=== PATIENT | male | born 1985 ===

== ENCOUNTER 2016-07-17 16:24 | Emergency (ER) | payer OTHER ==
[~2016-07-17] VITALS: Ht 182.9 cm; Wt 90.7 kg
[2016-07-17 16:48] LABS: ABSOLUTE BASOPHIL COUNT 0 /CUMM (0.0-0.2); ABSOLUTE EOSINOPHIL COUNT 0 /CUMM (0.0-0.7); ABSOLUTE GRANULOCYTE CT 6.4 /CUMM (1.4-6.5); ABSOLUTE LYMPH COUNT 2.3 /CUMM (1.2-3.4); ABSOLUTE MONOCYTE COUNT 0.7 /CUMM (0.10-0.60); BASOPHIL % 0.3 % (0.0-2.0); EOSINOPHIL % 0.1 % (0-5); GRANULOCYTE % 67.5 % (42.2-75.2); MEAN CORPUSCULAR HGB 30.8 PG (27.0-31.0); MEAN CORPUSCULAR VOLUME 87.9 FL (80.0-94.0); MEAN PLATELET VOLUME 7.4 FL (7.4-10.4); PLATELET COUNT 320 /CUMM (130-400); RBC DISTRIBUTION WIDTH 12.4 % (11.5-14.5); RED BLOOD CELL CT 5.13 /CUMM (4.70-6.10); WHITE BLOOD CELL COUNT 9.4 /CUMM (4.8-10.8)
--- NOTE | 2016-07-17 17:53 | ED PSYCHIATRIC COMPLAINT ---
History of Present Illness General Chief Complaint: ETOH/Drug Related Complaint Stated Complaint: PT NEEDS DETOX FROM ALOCHOL Source: patient Exam Limitations: no limitations Vital Signs & Intake/Output Vital Signs & Intake/Output Vital Signs Date Time Temp Pulse Resp B/P Pulse O2 O2 Flow FiO2 Ox Delivery Rate 07/17 1922 98.9 68 19 133/82 97 Room Air 07/17 1816 98 Room Air 07/17 181 97.1 64 16 133/82 07/17 181 97.1 64 16 133/82 98 Room Air 07/17 1629 98.9 102 20 162/84 97 Room Air Allergies Coded Allergies: No Known Allergies (07/17/16) Reconcile Medications No Known Home Medications Triage Note: 31 Y/O MALE REQUESTING ETOH DETOX: STATES HE STOPPED DRINKING FOR 2 MONTHS AND THEN STARTED AGAIN APPROX 4-5 MONTHS AGO; HAS BEEN DRINKING DAILY SINCE - "A 12 PACK A DAY OR MORE". DENIES HX SEIZURES, DENIES TREMORS. LAST DRINK THURSDAY - DENIES FEELING ANY SYMPTOMS WITHDRAWAL AT THIS TIME. TEARFUL. Triage Nurses Notes Reviewed? yes Onset: Gradual Duration: 5 MONTHS Timing: recent history Severity: moderate HPI: This is a 31 year old male with a long history of alcohol abuse which got worse after his mother 5 years ago. He drinks daily 6 better to a pack per day, occasionally hard liquor. Denies binge drinking. 2 months ago he stopped with the help of AA but restarted drinking in January. Denies other drug use. 1 PPD smoker history. Patient admits to wanting to cut back on his drinking. He lives with his fiancee and son who wanted him to quit. Admits to punching a wall on thursday, which was when he had his last drink. (CHRIS LAMAR,TITUS) Past History Travel History Traveled to [place] past 21 day No Medical History Any Pertinent Medical History? 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 No (TITUS GEORGE MD) Review of Systems Review of Systems Constitutional: Denies: chills, fever. (TITUS GEORGE MD) Physical Exam Physical Exam General Appearance: well developed/nourished, alert, awake, mild distress, TEARFUL Head: atraumatic, normal appearance Eyes: Bilateral: normal appearance, PERRL, EOMI. Ears, Nose, Throat: normal pharynx, normal ENT inspection, hearing grossly normal Neck: normal inspection, supple, full range of motion Respiratory: normal breath sounds, chest non-tender, no respiratory distress Cardiovascular: regular rate/rhythm Gastrointestinal: normal bowel sounds, soft, non-tender Extremities: RIGHT HAND SWELLING, ERYTHEMA Neurological/Psychiatric: no motor/sensory deficits, awake, alert, depressed affect Behavoir/Eye Contact/Speech: cooperative, normal speech, good eye contact Skin: intact SAD PERSONS Done? patient not suicidal (TITUS GEORGE MD) Progress Differential Diagnosis: ALCOHOL ABUSE, ALCOHOL DEPENDENCE, RIGHT HAND BOXERS FRACTURE Plan of Care: Orders Procedure Date/time Status CIWA 07/17 1748 Active EKG 07/17 1748 Active URINE DRUG SCREEN FOR ER ONLY 07/17 1631 Active URINALYSIS 07/17 1631 Complete LIPASE 07/17 1631 Complete ETHANOL 07/17 1631 Complete COMPREHENSIVE METABOLIC PANEL 07/17 1631 Complete CBC WITHOUT DIFFERENTIAL 07/17 1631 Complete AMYLASE 07/17 1631 Complete Laboratory Tests 07/17/16 1905: Urine Opiates Screen Pending, Methadone Screen Pending, Barbiturate Screen Pending, Ur Phencyclidine Scrn Pending, Amphetamines Screen Pending, U Benzodiazepines Scrn Pending, Urine Cocaine Screen Pending, Urine Cannabis Screen Pending, Urine Color YEL, Urine Clarity CLEAR, Urine pH 6.0, Ur Specific [place] 1.020, Urine Protein NEG, Urine Ketones 15 H, Urine Nitrite NEG, Urine Bilirubin NEG, Urine Urobilinogen 0.2, Ur Leukocyte Esterase NEG, Ur Microscopic EXAM NOT REQUIRED, Urine Hemoglobin NEG, Urine Glucose NEG 07/17/16 1642: Anion Gap 8, Estimated GFR > 60, BUN/Creatinine Ratio 14.5, Glucose 106 H, Calcium 9.9, Total Bilirubin 0.9, AST 21, ALT 32, Alkaline Phosphatase 102, Total Protein 7.2, Albumin 4.5, Globulin 2.7, Albumin/Globulin Ratio 1.7, Amylase 33, Lipase 17 L, CBC w Diff NO MAN DIFF REQ, RBC 5.13, MCV 87.9, MCH 30.8, RDW 12.4, MPV 7.4, Gran % 67.5, Lymphocytes % 24.5, Monocytes % 7.6, Eosinophils % 0.1, Basophils % 0.3, Absolute Granulocytes 6.4, Absolute Lymphocytes 2.3, Absolute Monocytes 0.7 H, Absolute Eosinophils 0, Absolute Basophils 0, PUBS MCHC 35.0, Serum Alcohol < 10.0 Diagnostic Imaging: Viewed by Me: Radiology Read. Discussed w/RAD: Radiology Read. (TITUS GEORGE MD) Departure Departure Time of Disposition: 1917 Disposition: HOME OR SELF CARE Condition: Stable Clinical Impression Primary Impression: Boxers fracture Secondary Impressions: Alcohol dependence Referrals: PATIENT HAS NO PRIMARY CARE DR (PCP/Family) CLOVIS CASAREZ MD Additional Instructions: Follow-up with the list of outpatient detox facilities. Follow-up with the orthopedic doctor listed regarding her boxer's fracture. Return to the ER for any changing or worsening symptoms. Departure Forms: Customer Survey General Discharge Information Prescriptions: Current Visit Scripts No Known Home Medications (TITUS GEORGE MD) Procedures Splinting Location: R hand fifth metacarpal fracture was splinted by myself Manual Alignment Performed: No Hand-Made Type: fiberglass Splint: ulnar gutter splint in the position of safety Splint Applied By: splint applied by me Pre-Proc Neuro Vasc Exam: normal Post-Proc Neuro Vasc Exam: normal Progress: I applied the splint at the request of Dr. George. (ROSA POTTER)
[2016-07-17 19:23] VITALS: BP 133/82
--- NOTE | 2016-07-17 19:26 | RADIOLOGY REPORT ---
EXAMINATION: XR HAND, RIGHT CLINICAL INFORMATION: Right hand pain and swelling. Status post punching a wall COMPARISON: None TECHNIQUE: AP, lateral, and oblique views of the right hand. FINDINGS: There is an acute transverse fracture of the midshaft of the right fifth metacarpal with mild volar angulation. No additional fractures are seen. Metacarpophalangeal and interphalangeal joint spaces are maintained. IMPRESSION: Acute transverse fracture of the midshaft of the right fifth metacarpal with mild volar angulation.
== END 2016-07-17 19:49 ==
LOC: ERH 16:24
PROVIDERS: Emergency Medicine
DX: S62.306A Unspecified fracture of fifth metacarpal bone, right hand, initial encounter for closed fracture (principal); F10.20 Alcohol dependence, uncomplicated; W22.01XA Walked into wall, initial encounter
CPT/HCPCS: 73120-RT; 80307; 81003; 93005; 93010; G0480